=== PATIENT | female | born 1990 | race Caucasian/White ===

== ENCOUNTER → 2018-09-16 | Outpatient (CLI) | payer OTHER, SELFPAY ==
[2015-09-12 07:35] VITALS: BMI 32.1
[2018-09-17 14:58] LABS: Chlamydia Trachomatis by PCR Negative (Negative); Neisserai gonorrhoeae by PCR Negative (Negative); Probe Check PASS; Sample Adequacy Control PASS; Specimen Processing Control PASS
[2018-09-22 17:36] LABS: HPV Reflexed? NOT INDICATED
== END | disposition home or self-care (01) ==
LOC: LABSPEC 09-17 11:11
PROVIDERS: Referring Provider Obstetrics & Gynecology; Visit Provider Obstetrics & Gynecology
DX: Z12.4 Encounter for screening for malignant neoplasm of cervix (principal); Z11.3 Encounter for screening for infections with a predominantly sexual mode of transmission
CPT/HCPCS: 87491; 87591; 87624; 88175; G0145

== ENCOUNTER → 2019-02-18 10:21 | Outpatient (CLI) | payer OTHER, SELFPAY | PROVIDERS: Visit Provider Obstetrics & Gynecology | DX: Z36.85 Encounter for antenatal screening for Streptococcus B (principal) | CPT/HCPCS: 87081 ==

== ENCOUNTER 2019-03-14 09:10 | Inpatient (IN) | payer SELFPAY ==
[2015-09-12 07:35] VITALS: BMI 32.1
[2019-03-14 08:10] VITALS: BMI 34.2
[2019-03-14 09:10] LABS: ROM Internal Control Test YES-OK TO RESULT pt. (Internal QC)
[2019-03-14 09:11] LABS: ROM Patient Test POSITIVE (Negative)
[2019-03-14] MEDS: Lactated Ringers 1,000 ML 50 ML IV (09:45)
[2019-03-14 10:16] LABS: Absolute Lymphocyte Count 1.29 X10^3/uL (0.83-4.51); Absolute Neutrophil Count 11.5 X10^3/uL (2.0-7.7); Basophil# 0.03 X10^3/uL; Basophil% 0.2 % (0-1); Eosinophil# 0.05 X10^3/uL; Eosinophils% 0.4 % (0-5); Hemoglobin 11.9 g/dL (12.0-15.0); Lymphocyte # 1.29 X10^3/ul (4.0); Lymphocyte % 9.3 % (19-41); Mean Corp Hgb Conc 33.1 g/dL (32-36); Mean Corpuscular Hgb 26.7 pg (27.0-32.0); Mean Corpuscular Volume 80.9 fL (81-99); Mean Platelet Vol. 11.7 fl (6.2-12.0); Monocyte# 0.99 X10^3/uL; Monocyte% 7.1 % (0-10); NRBC Flagged by Analyzer 0 % (0-5); Neutrophil # 11.45 X10^3/uL (2.7-7.7); Neutrophil % 82.2 % (47-70); Platelet Count 149 K/mm3 (150-450); RBC Distribution Width CV 13.9 % (11.6-14.6); RBC Distribution Width SD 40.2 fl (35.1-43.9); Red Blood Count 4.45 M/mm3 (4.2-5.4); White Blood Count 13.9 K/mm3 (4.4-11.0)
[2019-03-14] MEDS: 0.9% Normal Saline Single 100 ML IV.SOLN. IY (10:18)
[2019-03-14] MEDS: Oxytocin 30 units/NS 500 ml 30 UNITS/500 ML IV.SOLN IV (10:22)
--- NOTE | 2019-03-14 11:01 | PCM.HPOB.BLA ---
History and Physical Date of Admission: 03/14/19 ADMISSION HISTORY AND PHYSICAL History of this : 28 yo female Ab0 with EDC 03/13/2019 by 14 weeks 4 days Ultrasound, presents to Labor and Delivery with CC of contractions last night, and ? SROM 40 17 wk EGA ROM test positive. care remarkable for - A positive, Rubella Immune. GBS negative. 1.) Anemic Hgb at admission 11.9 g/dl. 2.) Declines AFP,CF 3.) ? LEFT CLUB FOOT 20 weeks 4 days 4.) Prior C/S of twins at 34 weeks gestation, then successful last -- 9# baby with retained placenta. 88 percent likelihood delivery by calculator. 5.) Hx demise first baby delivered at 36 weeks by Pertinent Past Medical History: Breast/Ovarian/Colon Cancers - Denies Infections - Chicken pox Illnesses - none Accidents - None History of Abnormal PAPS - Denies Hospitalizations - None SURGICAL HISTORY: 1. , 03/10/2014 MENSTRUAL HISTORY: LMP Known?- Definite Amount/Duration - 4 days, Regularity - Regular, Frequency - monthly days, LMP - 06/06/18, Age Onset Menarche - 13 PAST PREGNANCIES: Total Pregnancies - 4; Full Term Pregnancies - 2; Premature - 1; Abortions, Induced - 0; Abortions, Spontaneous - 0; Ectopics - 0; Multiple Births - 1; Living Children - 3 FAMILY HISTORY: Father - Cancer; SOCIAL HISTORY: Alcohol Use - None Smoking - Never Diet - no special diet Lifestyle - moderate stress lifestyle and Exercise - active Seat Belt Use - occasional Employer - [employer] Illicit Drug Use - None Sexual Activity - Residence - rents an apartment Spouse-Sig Other Name - Nigel Spouse-Sig Other Occupation - [employer] Children Name(s) - Mary Turner Derrick(16) Control - Allergies: No Known Drug Allergies Medications: During - Supplement (s) [No Strength]; Water Aleta Multiple Mineral/Vitamin Liquid; Vitamin 27 mg iron-0.8 mg tablet Review of Systems: Contractions last night. SROM during the night. PHYSICAL EXAMINATION General Appearance: 28 yo female in no acute distress Vital Signs: AF, VSS Lungs: regular rate and rhythm. Breasts: deferred Abdomen: gravid Cervix: 3/75/-3 after Leach bulb insertion. moderate clear fluid noted. Presentation: cephalic Size: AGA Movement: present Heart: 130-140s periods of dec variability. Accels noted. Occasional early or variable with UC. Irregular UCs. Impression /Plan: Intrauterine 40 1/7 wk . Hx of prior successful after C/S for twin IUP. Admit for labor. relatively unfavorable cervix reported /high Leach placed and Pitocin induction after SROM confirmed by ROM test positive. Anticipate . Advised of potential for C/S , intolerance of labor.
--- NOTE | 2019-03-14 12:45 | PN_ITS ---
Progress Note LABOR PROGRESS NOTE Not feeling uncomfortable and having rare UCs. Pitocin at 4 mIU/min AVSS EFM 130-140s avg variability. Accels. Variable decelerations, deeper, to 80- 90s less than 30 sec UCs irregular and ? mVUs. CX: vtx very high. (full bladder?) and IUPC placed. A/P: 40 17 wk EGA . . Prior 9# . EFM with deep variables and earlies. VTX remains very high. recommend position changes, amnioinfusion. Keep bladder empty. Sono two weeks ago: anterior placenta, no window noted.
[2019-03-14] MEDS: Amnioinfusion- 0.9% NS 1,000 ML IV.SOLN. INTRA-UTER (12:53)
[2019-03-14] MEDS: Lactated Ringers 500 ML 999 ML IV (15:09)
[2019-03-14] MEDS: fentaNYL-bupivacaine (epidural) 100 ML BAG EPIDURAL (15:51)
[2019-03-14] MEDS: Oxytocin 30 units/NS 500 ml 30 UNITS/500 ML IV.SOLN 334 UNITS IV (17:00)
--- NOTE | 2019-03-14 17:07 | DCINST_ITS ---
Discharge Diet: No Restrictions Discharge Activity: May Shower, May Take a Tub Bath Return to work on:: 04/27/19 May resume sexual activity in: 4-6 weeks Additional Activity Instructions:: Nothing in the vagina for 4-6 weeks. You may return to work/school in 6 weeks. Additional Instructions: If you experience any of the following, contact your healthcare provider. * Bleeding that soaks a pad every hour for 2 hours * Fever 100.4 or higher * Unrelieved abdominal pain * Problems urinating (including inability to urinate or burning while urinating). * Visual changes * Severe headache * Flu-like symptoms * Pain or redness in one of both of your breasts * Pain, warmth, tenderness or swelling in your legs, especially the calf area * Frequent nausea and vomiting * Symptoms of depression or anxiety If you experience any of the following, call 911 or go to the nearest Emergency Room. * Chest pain * Problems breathing * Seizure activity * Partial or complete paralysis of a body part, slurred speech, weakness or drooping of the face, or a sudden inability to walk or hold your balance Allergies/Adverse Reactions: Allergies No Known Allergies Allergy (Verified 09/12/15 07:36) Medications to take at Discharge Vits [Prenatabs FA ] 1 tab PO DAILY 09/12/15 Ferrous Sulfate 325 mg PO BID 03/14/19 Please Follow Up With: Sudeep Arenas MD - [phone] When: Call to make an appointment with your doctor in 6 weeks. If you had elevated Blood Pressure or 4th degree laceration you will need to be seen in 2 weeks. Test Results: Test results from this visit will be discussed in further detail at your follow- up appointment, if applicable. Proposed Discharge Date: 03/16/19
--- NOTE | 2019-03-14 17:07 | PCM.DCVAG ---
Discharge Diet: No Restrictions Discharge Activity: May Shower, May Take a Tub Bath Return to work on:: 04/27/19 May resume sexual activity in: 4-6 weeks Additional Activity Instructions:: Nothing in the vagina for 4-6 weeks. You may return to work/school in 6 weeks. Additional Instructions: If you experience any of the following, contact your healthcare provider. Bleeding that soaks a pad every hour for 2 hours Fever 100.4 or higher Unrelieved abdominal pain Problems urinating (including inability to urinate or burning while urinating). Visual changes Severe headache Flu-like symptoms Pain or redness in one of both of your breasts Pain, warmth, tenderness or swelling in your legs, especially the calf area Frequent nausea and vomiting Symptoms of depression or anxiety If you experience any of the following, call 911 or go to the nearest Emergency Room. Chest pain Problems breathing Seizure activity Partial or complete paralysis of a body part, slurred speech, weakness or drooping of the face, or a sudden inability to walk or hold your balance Allergies/Adverse Reactions: Allergies No Known Allergies Allergy (Verified 09/12/15 07:36) Medications to take at Discharge Vits [Prenatabs FA ] 1 tab PO DAILY 09/12/15 Ferrous Sulfate 325 mg PO BID 03/14/19 Please Follow Up With: Sudeep Arenas MD - [phone] When: Call to make an appointment with your doctor in 6 weeks. If you had elevated Blood Pressure or 4th degree laceration you will need to be seen in 2 weeks. Test Results: Test results from this visit will be discussed in further detail at your follow-up appointment, if applicable. Proposed Discharge Date: 03/16/19
--- NOTE | 2019-03-14 17:08 | PCM.OPRPT ---
Vaginal Delivery Maternal Presentation: Spontaneous Rupture of Membranes 40 1/7 wk SROM Method of Induction: Pitocin, Leach Bulb Amniotic Membrane Rupture Type: Spontaneous at home Amniotic Fluid Description: Clear Final BHARTI: 03/13/19 Gestational age: 40 Weeks and 1 Days Date of Procedure: 03/14/19 Pre-Operative Diagnosis: 40 1/7 wk -CLEMENTE Post-Operative Diagnosis: 40 1/7 wk Surgery/ Procedure Performed: Spontaneous Vaginal Delivery Anesthesiologist: Miko Salinas - ABDIEL Type of Anesthesia: Epidural Description of Procedure: of a alonzo viable female over intact perineum. head delivered MARTÍN. OP and nares bulb suctioned at perineum. Nuchal cord times one reduced at delivery. Shoulders delivered easily. Cord around ankles also noted. End stage meconium noted. infant to maternal abdomen after stimulation. Initially poor tone, but grimace noted. Ap 8/9 routine cord gases sent PP exam; no lacerations, no repair. Abrasion only at posterior perineum. Hemostatic Placenta delivered by spont expulsion, expression. 3V cored, normal appearing intact with trailing membranes EBL 200cc Pt and tolerated delivery well. to recovery, stable condition Ray Wei and needle counts correct times two. Presentation: Vertex, MARTÍN Placental Delivery Description: Spontaneous, Expressed Placenta Disposition: [facility] Cord Vessel Description: 3 Vessels Nuchal Cord Compression: With compression Cord Gases drawn per routine: ABG, VBG Cord Entanglement: Around neck x 1, loose Drain: Leach to straight drain Estimated Blood Loss: 200 Infant A gender: Female (1 minute): 8 (5 minute): 9 Episiotomy Description: None Laceration: None Medications given after delivery: IV Pitocin Complications: None
[2019-03-14] MEDS: 0.9% Saline Lock 10 ML Syringe IV (20:27)
[2019-03-14 20:46] VITALS: BP 118/59; PULSE 65; RESP 16; TEMP 36.6
[2019-03-15] VITALS: BP 99/54; PULSE 73; RESP 16; TEMP 36.9
[2019-03-15 04:00] VITALS: BP 106/61; PULSE 70; RESP 16; TEMP 36.4
[2019-03-15 08:00] VITALS: BP 103/56; PULSE 72; RESP 16; TEMP 36.3; O2SAT 97
--- NOTE | 2019-03-15 11:44 | PCM.PN.OB ---
Subjective: Pain well controlled, tolerating diet, passing flatus; well; undecided on contraception; spouse bedside and supportive Objective: AVSS Breasts filling, nipples tender but otherwise atraumatic Fundus firm, midline, u/2, lochia small - Physical Exam Vitals/I&O's: Vital Signs Temp Pulse Resp BP Pulse Ox 97.3 F L 72 16 103/56 L 97 03/15/19 08:00 03/15/19 08:00 03/15/19 08:00 03/15/19 08:00 03/15/19 08:00 Oxygen Delivery Method Room Air Weight: 199 lb 4.766 oz Body Mass Index (BMI) 34.2 Intake and Output for Last 24 Hours 03/13/19 03/14/19 03/15/19 23:59 23:59 23:59 Intake Total Balance General: Alert, Oriented x3, Cooperative, No apparent distress HEENT: PERRLA, EOMI Oral: Moist Mucosa Neck: Supple Lungs: Clear to auscultation, Normal air movement Cardiovascular: Regular rate, Regular Rhythm Abdomen: Bowel Sounds Present, Soft, Non Tender, Non-Distended, Passing Flatus Extremities: No edema, Capillary Refill Less than 3 Seconds, No Calf Tenderness Skin: No rashes Musculoskeletal: No Tenderness to Palpation of Joints or Extremities Neurological: Cranial nerves II-XII grossly intact, Deep Tendon Reflexes 2+/4 and Symmetrical, Neuro grossly intact Psych/Mental Status: Normal Affect, Alert and oriented to time, place, person, mood and affect Current Medications Acetaminophen (Tylenol) 1,000 mg PO Q8H PRN PRN PRN Reason: Pain Score 1-3/10 Bisacodyl (Dulcolax) 10 mg RECTAL UD PRN PRN Reason: If no BM Dibucaine (Dibucaine) 1 applic TOPICAL TID PRN PRN; Protocol PRN Reason: Discomfort Hydrocortisone (Hytone) 1 applic TOPICAL TID PRN PRN; Protocol PRN Reason: Discomfort Ibuprofen (Motrin) 600 mg PO Q6H PRN PRN PRN Reason: Pain Score 1-3/10 Methylergonovine Maleate (Methergine) 0.2 mg IM X1 PRN PRN Reason: Excess bleeding/uterine atony Senna/Docusate Sodium (Senokot-S, Flora-Colace) 1 - 2 tablet PO DAILY PRN PRN PRN Reason: Constipation Simethicone (Mylicon) 80 mg PO PCHS PRN PRN Reason: Indigestion/Stomach pain Zolpidem Tartrate (Ambien (Generic)) 5 mg PO QHS PRN PRN PRN Reason: Insomnia Medical Necessity - Tobacco Use Smoking Status: Never smoker Assessment/Plan Assessment: 28 yo G4 now P2204 by 14 weeks 4 days US, delivered via at 40w1d gestation PP Day #1, normal involution, normal course Plan: Discharge teaching completed Discharge home today RTO 6 weeks for PP checkup w/Dr. Arenas
[2019-03-15 12:30] VITALS: BP 109/70; PULSE 70; RESP 18; TEMP 36.4; O2SAT 98
[2019-03-15 16:16] VITALS: BP 107/66; PULSE 60; RESP 16; TEMP 36.5; O2SAT 98
[2019-03-15 20:15] VITALS: BP 112/68; PULSE 60; RESP 16; TEMP 36.3
[2019-03-16 01:36] VITALS: BP 109/54; PULSE 60; RESP 16; TEMP 36.4
[2019-03-16] MEDS: Senna/Docusate Sodium 1 Tablet PO (01:42)
[2019-03-16 08:10] VITALS: BP 105/62; PULSE 73; RESP 20; TEMP 36.2
--- NOTE | 2019-03-16 09:11 | PCM.PN.OB ---
Subjective: Pain well controlled, tolerating diet, passing flatus; well; spouse bedside and supportive; decision made to stay an extra night to monitor 's bilirubin levels, planning to go home today Objective: AVSS Breasts filling, nipples atraumatic Fundus firm, midline, u/2, lochia small - Physical Exam Vitals/I&O's: Vital Signs Temp Pulse Resp BP Pulse Ox 97.2 F L 73 20 H 105/62 98 03/16/19 08:10 03/16/19 08:10 03/16/19 08:10 03/16/19 08:10 03/15/19 16:16 Oxygen Delivery Method Room Air Weight: 199 lb 4.766 oz Body Mass Index (BMI) 34.2 Intake and Output for Last 24 Hours 03/14/19 03/15/19 03/16/19 23:59 23:59 23:59 Intake Total Balance General: Alert, Oriented x3, Cooperative, No apparent distress HEENT: PERRLA, EOMI Oral: Moist Mucosa Neck: Supple Lungs: Clear to auscultation, Normal air movement Cardiovascular: Regular rate, Regular Rhythm Abdomen: Bowel Sounds Present, Soft, Non Tender, Non-Distended, Passing Flatus Extremities: No edema, Capillary Refill Less than 3 Seconds, No Calf Tenderness Skin: No rashes Musculoskeletal: No Tenderness to Palpation of Joints or Extremities Neurological: Cranial nerves II-XII grossly intact, Deep Tendon Reflexes 2+/4 and Symmetrical, Neuro grossly intact Psych/Mental Status: Normal Affect, Appropriate, Alert and oriented to time, place, person, mood and affect Current Medications Acetaminophen (Tylenol) 1,000 mg PO Q8H PRN PRN PRN Reason: Pain Score 1-3/10 Bisacodyl (Dulcolax) 10 mg RECTAL UD PRN PRN Reason: If no BM Dibucaine (Dibucaine) 1 applic TOPICAL TID PRN PRN; Protocol PRN Reason: Discomfort Hydrocortisone (Hytone) 1 applic TOPICAL TID PRN PRN; Protocol PRN Reason: Discomfort Ibuprofen (Motrin) 600 mg PO Q6H PRN PRN PRN Reason: Pain Score 1-3/10 Methylergonovine Maleate (Methergine) 0.2 mg IM X1 PRN PRN Reason: Excess bleeding/uterine atony Senna/Docusate Sodium (Senokot-S, Flora-Colace) 1 - 2 tablet PO DAILY PRN PRN PRN Reason: Constipation Last Admin: 03/16/19 01:42 Dose: 1 tablet Documented by: Simethicone (Mylicon) 80 mg PO PCHS PRN PRN Reason: Indigestion/Stomach pain Zolpidem Tartrate (Ambien (Generic)) 5 mg PO QHS PRN PRN PRN Reason: Insomnia Medical Necessity - Tobacco Use Smoking Status: Never smoker Assessment/Plan Assessment: 28 yo G4 now P2204 by 14 weeks 4 days US, delivered via at 40w1d gestation PP Day #2, normal involution, normal course Plan: Discharge teaching reviewed Discharge home today RTO 6 weeks for PP checkup w/Dr. Arenas
== END 2019-03-16 10:45 | disposition home or self-care (01) | DRG 807 ==
LOC: WPOUT 09:17
PROVIDERS: Advanced Practice Midwife; Admitting Provider Obstetrics & Gynecology; Referring Provider Obstetrics & Gynecology; Visit Provider Obstetrics & Gynecology
DX: O34.219 Maternal care for unspecified type scar from previous cesarean delivery (principal); Z37.0 Single live birth; Z3A.40 40 weeks gestation of pregnancy; O77.0 Labor and delivery complicated by meconium in amniotic fluid; O69.1XX0 Labor and delivery complicated by cord around neck, with compression, not applicable or unspecified
CPT/HCPCS: 59025; 59050; 84112; 85025; 86850; 86900; 86901; 99218; J7030; J7120; A4216; G0378

== ENCOUNTER → 2021-10-20 | Outpatient (CLI) | payer OTHER, SELFPAY ==
[2021-10-20 10:34] LABS: Absolute Lymphocyte Count 0.89 X10^3/uL (0.83-4.51); Basophil# 0.02 X10^3/uL; Basophil% 0.3 % (0-1); Eosinophil# 0.08 X10^3/uL; Eosinophils% 1.2 % (0-5); Hematocrit 35.9 % (37-47); Hemoglobin 11.8 g/dL (12.0-15.0); Lymphocyte # 0.89 X10^3/ul (0.83-4.51); Lymphocyte % 13.6 % (19-41); Mean Corp Hgb Conc 32.9 g/dL (32-36); Mean Corpuscular Hgb 26.5 pg (27.0-32.0); Mean Corpuscular Volume 80.7 fL (81-99); Mean Platelet Vol. 11.8 fl (6.2-12.0); Monocyte# 0.52 X10^3/uL; Monocyte% 7.9 % (0-10); NRBC Flagged by Analyzer 0 % (0-5); Neutrophil # 5.02 X10^3/uL (2.7-7.7); Neutrophil % 76.7 % (47-70); Platelet Count 166 K/mm3 (150-450); RBC Distribution Width CV 14.6 % (11.6-14.6); RBC Distribution Width SD 42.5 fl (35.1-43.9); Red Blood Count 4.45 M/mm3 (4.2-5.4); White Blood Count 6.6 K/mm3 (4.4-11.0)
[2021-10-20 11:34] LABS: HIV - WCH Non-Reactive (Nonreactive); Hepatitis B Surface Antigen Non-Reactive (Nonreactive); Hepatitis C Antibody Non-Reactive (Nonreactive); Rubella IgG Reactive (Nonreactive); Syphilis Antibodies Non-reactive
[2021-10-23 01:06] LABS: Chlamydia By Nucleic Acid AMP Negative (Negative)
[2021-10-23 09:13] LABS: Gonococcus By Nucleic Acid AMP Negative (Negative)
[2021-10-24 17:09] LABS: HPV Reflexed? NOT INDICATED
== END | disposition home or self-care (01) ==
LOC: WOBLAB 09:38
PROVIDERS: Visit Provider Student in an Organized Health Care Education/Training Program
DX: Z34.82 Encounter for supervision of other normal pregnancy, second trimester (principal); Z11.3 Encounter for screening for infections with a predominantly sexual mode of transmission; Z12.4 Encounter for screening for malignant neoplasm of cervix
CPT/HCPCS: 36415; 85025; 86703; 86762; 86780; 86803; 87086; 87088; 87340; 87491; 87591; 88175; G0145

== ENCOUNTER → 2021-12-25 | Outpatient (CLI) | payer OTHER, SELFPAY ==
[2021-12-25 15:32] LABS: Absolute Lymphocyte Count 0.91 X10^3/uL (0.83-4.51); Absolute Neutrophil Count 6.1 X10^3/uL (2.0-7.7); Basophil# 0.03 X10^3/uL; Basophil% 0.4 % (0-1); Eosinophil# 0.25 X10^3/uL; Eosinophils% 3.2 % (0-5); Hematocrit 32.9 % (37-47); Hemoglobin 10.6 g/dL (12.0-15.0); Lymphocyte # 0.91 X10^3/ul (0.83-4.51); Lymphocyte % 11.7 % (19-41); Mean Corp Hgb Conc 32.2 g/dL (32-36); Mean Corpuscular Volume 83.9 fL (81-99); Mean Platelet Vol. 11.3 fl (6.2-12.0); Monocyte# 0.51 X10^3/uL; Monocyte% 6.5 % (0-10); NRBC Flagged by Analyzer 0 % (0-5); Neutrophil # 6.06 X10^3/uL (2.7-7.7); Neutrophil % 77.7 % (47-70); Platelet Count 154 K/mm3 (150-450); RBC Distribution Width CV 14.6 % (11.6-14.6); RBC Distribution Width SD 44.2 fl (35.1-43.9); Red Blood Count 3.92 M/mm3 (4.2-5.4); White Blood Count 7.8 K/mm3 (4.4-11.0)
[2021-12-25 15:39] LABS: Glucose Challenge Gest 1H 50g 121 mg/dL (70-140)
== END | disposition home or self-care (01) ==
LOC: WOBLAB 14:35
PROVIDERS: Visit Provider Student in an Organized Health Care Education/Training Program
DX: Z34.82 Encounter for supervision of other normal pregnancy, second trimester (principal)
CPT/HCPCS: 36415; 82950; 85025

== ENCOUNTER → 2022-03-21 | Outpatient (CLI) | payer OTHER, SELFPAY | END | disposition home or self-care (01) | LOC: LABSPEC 14:28 | PROVIDERS: Visit Provider Student in an Organized Health Care Education/Training Program | DX: Z36.85 Encounter for antenatal screening for Streptococcus B (principal) | CPT/HCPCS: 87077; 87081; 87186 ==

== ENCOUNTER 2022-04-12 06:47 | Inpatient (IN) | payer SELFPAY, OTHER ==
[2022-04-12] VITALS (44 sets, daily range): BP systolic 120–158; BP diastolic 59–87; PULSE 69–88; TEMP 36–36.4; O2SAT 92–100; BMI 40.8
[2022-04-12] MEDS: Lactated Ringers 1,000 ML 50 ML IV (07:45)
[2022-04-12 07:59] LABS: Absolute Lymphocyte Count 1.06 X10^3/uL (0.83-4.51); Absolute Neutrophil Count 7.8 X10^3/uL (2.0-7.7); Basophil# 0.02 X10^3/uL; Basophil% 0.2 % (0-1); Eosinophil# 0.08 X10^3/uL; Eosinophils% 0.8 % (0-5); Hematocrit 35.2 % (37-47); Hemoglobin 11.4 g/dL (12.0-15.0); Lymphocyte # 1.06 X10^3/ul (0.83-4.51); Lymphocyte % 10.8 % (19-41); Mean Corp Hgb Conc 32.4 g/dL (32-36); Mean Corpuscular Hgb 26.1 pg (27.0-32.0); Mean Corpuscular Volume 80.5 fL (81-99); Mean Platelet Vol. 11.6 fl (6.2-12.0); Monocyte# 0.81 X10^3/uL; Monocyte% 8.3 % (0-10); NRBC Flagged by Analyzer 0 % (0-5); Neutrophil # 7.77 X10^3/uL (2.7-7.7); Neutrophil % 79.4 % (47-70); Platelet Count 149 K/mm3 (150-450); RBC Distribution Width CV 14.6 % (11.6-14.6); RBC Distribution Width SD 42.1 fl (35.1-43.9); Red Blood Count 4.37 M/mm3 (4.2-5.4); White Blood Count 9.8 K/mm3 (4.4-11.0)
[2022-04-12] MEDS: Oxytocin 15 Units/NS 250ml 15 UNITS/250 ML IV.SOLN 2 UNITS IV (09:02)
--- NOTE | 2022-04-12 12:30 | PCM.HP.BLA ---
History and Physical Date of Admission: 04/12/22 Chief complaint: [place] History present illness: 31-year-old living 4 at 40 weeks and 5 days with BHARTI 04/07/2022 arrives for induction of labor for trial of labor after . Denies headache, visual changes, chest pain, shortness of breath, nausea vomit, right upper quadrant pain. is complicated by history of section, GBS positive Obstetric history: G1: 35-week demise G2: 34-week primary section twins G3: 40-week 8 pounds 14 ounce male G4: 40-week 6 pound 13 ounce female G5: Current Past medical history: None Medications: None Allergies: No known drug allergies Past surgical history: section Family history: Denies history DVT or PE Social history: Denies smoking, alcohol use, drug use Review of systems: Besides above pertinent positives a full review of systems was performed and found to be negative Physical exam: Vitals: Blood pressure 125/77 pulse 71 temperature 97.2 ?F SPO2 96% on room air General: Normal-appearing no acute distress HEENT: Normocephalic/atraumatic no cervical of adenopathy Cardiac/respiratory: No use accessory muscles, nonlabored breathing Abdomen: Soft, nontender, gravid Pelvis: Cervical exam 2/60/-3 AROM clear fluid Extremities: No peripheral edema normal peripheral pulses Psych: Normal affect normal demeanor nonpressured speech Labs: White blood cell count 9.8 hemoglobin 11.4 hematocrit 35.2% platelets 149. Blood type a positive antibody negative Assessment plan: 31-year-old G5, P4 living 4 at 40 weeks and 5 days for induction of labor for trial of labor after . Patient understands the risk of [place] include but are not limited to uterine rupture, patient understands she has the option to perform repeat section. Patient states understanding and wished to proceed. All questions were answered and consent was signed. Ambulatory delivery CEFM AROM clear fluid Pitocin induction GBS positive for penicillin
[2022-04-12] MEDS: Penicillin G 3,000,000 Units 50 ML 100 UNITS IV ×2 (13:01→17:35)
--- NOTE | 2022-04-12 17:46 | PN.OBGYN_ITS ---
Subjective Subjective Patient feeling increased pain with contractions Objective Data Objective Data Vital Signs: Vital Signs Temp Pulse BP Pulse Ox 97.3 F L 73 126/64 H 98 04/12/22 17:01 04/12/22 17:01 04/12/22 17:01 04/12/22 16:59 Weight: 216 lb 7.903 oz Body Mass Index (BMI) 40.8 Intake & Output: Intake and Output for Last 24 Hours 04/10/22 04/11/22 04/12/22 23:59 23:59 23:59 Intake Total 203.43 / 203.43 Output Total 900 / 900 Balance -696.57 / -696.57 Lab / Micro Data Result Diagrams: 04/12/22 07:45 Labs: Laboratory Results - last 24 hr 04/12/22 07:45: WBC 9.8, RBC 4.37, Hgb 11.4 L, Hct 35.2 L, MCV 80.5 L, MCH 26.1 L, MCHC 32.4, RDW Std Deviation 42.1, RDW Coeff of Irene 14.6, Plt Count 149 L, MPV 11.6, Immature Gran % (Auto) 0.500, Neut % (Auto) 79.4 H, Lymph % (Auto) 10.8 L, [place] % (Auto) 8.3, Eos % (Auto) 0.8, Baso % (Auto) 0.2, Absolute Neuts (auto) 7.8 H, Absolute Lymphs (auto) 1.06, Nucleated RBC % 0 04/12/22 07:45: Blood Type A POSITIVE, Antibody Screen NEGATIVE Physical Exam Const alert, oriented x3 and average body habitus HEENT normocephalic and moist oral mucous membranes Eyes PERRL Neck full ROM Resp normal respiratory effort, no retractions and no use of accessory muscles Extremity normal to inspection and full ROM Neuro moves all extremities and no focal motor deficits Psych mental status grossly normal, affect normal, speech normal and activity/motor behavior normal Assessment & Plan (1) : PLAN: Patient seen and examined. Going natural. Feeling increased pain with contractions we will continue to titrate Pitocin
--- NOTE | 2022-04-12 20:32 | EX.PCM.OBRPT ---
Vaginal Delivery Operative Information Date of Procedure: 04/12/22 Findings Description of Procedure: Normal spontaneous vaginal delivery of a viable female , vertex MARTÍN. Head and shoulders delivered with ease. Cord clamped and cut. Baby handed off to patient. Placenta delivered via cord traction and fundal massage. IV Pitocin initiated in order to facilitate uterine contractions. First-degree midline perineal laceration noted hemostatic without repair. EBL 250 cc Apgars 8/9
[2022-04-12] MEDS: Oxytocin 15 Units/NS 250ml 15 UNITS/250 ML IV.SOLN 83 UNITS IV (20:47)
--- NOTE | 2022-04-12 22:42 | NURSING ---
report given to viral GAY. that RN to assume care of couplet at this time.
[2022-04-13] VITALS (12 sets, daily range): BP systolic 105–124; BP diastolic 55–66; PULSE 58–73; RESP 16; TEMP 36.1–36.4; O2SAT 96
--- NOTE | 2022-04-13 03:42 | NURSING ---
This RN at bedside to round on MOB and infant. MOB was asleep in the bed with on her chest. This RN educated mother not to sleep with infant and will place her in the bassinet. MOB declines and said she will begin to feed her soon, that baby was spitty and she was going to wait until she settled down to feed her. This RN reiterated not to fall asleep with in bed and MOB verbalized understanding.
--- NOTE | 2022-04-13 07:24 | PCM.PN.OB ---
Subjective Subjective Feeling well. Lochia minimal. Breast-feeding. Objective Data Objective Data Vital Signs: Vital Signs Temp Pulse Resp BP Pulse Ox O2 Del Method 97.5 F L 71 16 105/62 96 Room Air 04/13/22 03:34 04/13/22 03:34 04/13/22 03:34 04/13/22 03:34 04/13/22 03:34 04/13/22 03:34 Oxygen Delivery Method Room Air Weight: 98.2 kg Body Mass Index (BMI) 40.8 Intake & Output: Intake and Output for Last 24 Hours 04/11/22 04/12/22 04/13/22 23:59 23:59 23:59 Intake Total 1235.00 / 1235.00 250 / 250 Output Total 1500 / 1500 800 / 800 Balance -265.00 / -265.00 -550 / -550 Lab / Micro Data Attestation: I reviewed the patient's lab results. Result Diagrams: 04/12/22 07:45 Labs: Laboratory Results - last 24 hr 04/12/22 07:45: WBC 9.8, RBC 4.37, Hgb 11.4 L, Hct 35.2 L, MCV 80.5 L, MCH 26.1 L, MCHC 32.4, RDW Std Deviation 42.1, RDW Coeff of Irene 14.6, Plt Count 149 L, MPV 11.6, Immature Gran % (Auto) 0.500, Neut % (Auto) 79.4 H, Lymph % (Auto) 10.8 L, [place]eller % (Auto) 8.3, Eos % (Auto) 0.8, Baso % (Auto) 0.2, Absolute Neuts (auto) 7.8 H, Absolute Lymphs (auto) 1.06, Nucleated RBC % 0 04/12/22 07:45: Blood Type A POSITIVE, Antibody Screen NEGATIVE Physical Exam Const alert, oriented x3 and no apparent distress HEENT normocephalic Head and Scalp: atraumatic Neck full ROM Resp normal respiratory effort Cardio regular rate GI normal to inspection, nondistended, normoactive bowel sounds GI Narrative: Uterus 2 cm below umbilicus Back/Spine normal ROM Extremity normal to inspection Extremity Narrative: Minimal pedal edema Neuro no focal motor deficits and no sensory deficits noted Psych mental status grossly normal and affect normal Assessment & Plan (1) state: PLAN: day 1 status post . Vaginal after section. Breast-feeding. Home tomorrow. (2) (vaginal after ):
--- NOTE | 2022-04-14 00:18 | PCM.PN.OB ---
Subjective Subjective Patient feeling well. Lochia minimal. No issues or concerns. Objective Data Objective Data Vital Signs: Vital Signs Temp Pulse Resp BP Pulse Ox O2 Del Method 97.1 F L 58 L 16 116/57 L 96 Room Air 04/13/22 21:07 04/13/22 21:09 04/13/22 21:07 04/13/22 21:09 04/13/22 03:34 04/13/22 21:07 Oxygen Delivery Method Room Air Weight: 98.2 kg Body Mass Index (BMI) 40.8 Intake & Output: Intake and Output for Last 24 Hours 04/12/22 04/13/22 04/14/22 23:59 23:59 23:59 Intake Total 1235.00 / 1235.00 250 / 250 Output Total 1500 / 1500 800 / 800 Balance -265.00 / -265.00 -550 / -550 Lab / Micro Data Result Diagrams: 04/12/22 07:45 Physical Exam Const alert, oriented x3 and no apparent distress HEENT normocephalic Head and Scalp: atraumatic Neck full ROM Resp normal respiratory effort Cardio regular rate GI normal to inspection, nondistended, normoactive bowel sounds GI Narrative: Uterus 2 cm below umbilicus Back/Spine normal ROM Extremity normal to inspection Extremity Narrative: Minimal pedal edema Neuro no focal motor deficits and no sensory deficits noted Psych mental status grossly normal and affect normal Assessment & Plan (1) (vaginal after ): PLAN: day 2 status post . Vaginal after section. Breast-feeding. Home today (2) state: PLAN: .
--- NOTE | 2022-04-14 00:19 | DCINST_ITS ---
Discharge Instructions Diet Discharge Diet: No restrictions Activity Discharge Activity: Return to Normal Activity and May Shower May resume sexual activity in: 4-6 weeks Weight Bearing Status: Weight bearing as tolerated Lifting Restrictions: No greater than 25 pounds Dressing / Incision Call your doctor if you observe: Fever of 101 or Higher, Change in Color, Inability to urinate, Using more than 1 pad per hour, Shortness of breath, Dizziness, Swelling in the ankles, Chest pain and Calf discomfort Follow Up Care Please Follow Up With: Elaine Hubbard DO When: 4- 6-week visit Test Results: Test results from this visit will be discussed in further detail at your follow- up appointment, if applicable. Discharge Plan Admission Admit Date/Time: 04/12/22 06:47 Primary Reason for Your Visit: Vaginal delivery Attending Provider: Abdirahman Hubbard Discharge Orders/Prescriptions Prescriptions: No Action Prenatabs FA 1 TABLET tablet 1 tab PO DAILY ferrous sulfate 325 MG tablet 325 mg PO BID Disposition Disposition (needs filled in before D/C Order can be placed): Home, Self Care
[2022-04-14 01:48] VITALS: BP 136/89; PULSE 69
[2022-04-14 01:50] VITALS: BP 136/89; PULSE 69; RESP 16; TEMP 36.1
[2022-04-14 08:39] VITALS: BP 117/74; PULSE 76
[2022-04-14 08:42] VITALS: BP 117/74; PULSE 76; RESP 16; TEMP 36.1; O2SAT 98
== END 2022-04-14 09:25 | disposition home or self-care (01) | DRG 807 ==
PROVIDERS: Student in an Organized Health Care Education/Training Program; Admitting Provider Obstetrics & Gynecology; Referring Provider Obstetrics & Gynecology; Visit Provider Obstetrics & Gynecology
DX: O34.219 Maternal care for unspecified type scar from previous cesarean delivery (principal); Z37.0 Single live birth; O48.0 Post-term pregnancy; O70.0 First degree perineal laceration during delivery; Z3A.40 40 weeks gestation of pregnancy; O99.824 Streptococcus B carrier state complicating childbirth
CPT/HCPCS: 59025; 59050; 85025; 86850; 86900; 86901; 99221; J7120; G0378